=== PATIENT | male | born 1960 | race Caucasian/White ===

== ENCOUNTER 2018-11-24 14:07 | Observation (INO) ==
[2018-11-24 11:16] LABS: Basophils # 0.1 K/mcL (0.0-0.2); Basophils % 0.9 %; Eosinophils # 0.2 K/mcL (0.0-0.6); Eosinophils % 1.9 %; Hematocrit 41.2 % (37.5-50.1); Hemoglobin 13.7 g/dL (12.9-16.9); Immature Granulocytes % 0.3 % (0-4); Lymphocytes # 1.2 K/mcL (0.6-4.6); Lymphocytes % 13.5 %; Mean Corpuscular HGB Conc 33.3 g/dL (31.6-35.5); Mean Corpuscular Hemoglobin 31.4 pg (28.0-33.3); Mean Corpuscular Volume 94.3 fL (83.0-100.0); Mean Platelet Volume 11.5 fL (9.4-12.4); Monocytes # 0.7 K/mcL (0.0-1.3); Monocytes % 7.5 %; Neutrophils # 6.9 K/mcL (1.6-8.9); Platelet Count 163 K/mcL (140-400); Red Blood Count 4.37 M/mcL (4.19-5.50); Segmented Neutrophils % 75.9 %; White Blood Count 9.1 K/mcL (4.3-11.1)
[2018-11-24 11:24] LABS: INR 1.9; Prothrombin Time 21.1 Seconds (9.4-12.1)
[2018-11-24 11:35] LABS: BUN/Creatinine Ratio 16 (6-26); Blood Urea Nitrogen 16 mg/dL (6-20); Calcium 9.1 mg/dL (8.6-10.3); Carbon Dioxide 26 mEq/L (23-29); Chloride 106 mEq/L (98-107); Glucose 146 mg/dL (70-105); Osmolality,Calculated 288 (280-300); Potassium 4.3 mEq/L (3.5-5.1); Sodium 137 mEq/L (136-145); eGFR For African Americans > 60 (> 60); eGFR For Non-African Americans > 60 (> 60)
--- NOTE | 2018-11-24 11:45 | History & Physical Report ---
Date of Encounter: 11/24/18 Time of Encounter: 11:42 24 Hour HP Update - Instructions Instructions: If the History and Physical is less than 30 days old and was completed prior to A.M. admission and or procedure and has NOT been updated on calendar day of procedure please complete this update prior to performing procedure. - Update Patient reports changes in Medical Condition: No Changes in examination, assessment, or condition: No Changes in Medication: No - Attending Attestation Please refer to eCW encounter dated 10/30/[address] Ted Trejo as H&P. Mr. Haynes is a 58-year-old with known hx of A-Flutter RVR. Wore event monitor that showed episode of A-Fib RVR on 10/23/18, PAF. He reports dyspnea, diaphoresis and palpitations at times when he thinks he is out of rhythm. Planned admission for Rythmol initiation, 150mg [id number]. On Lopressor 100mg BID. Anticoagulated on Coumadin, followed by [facility]. INR over the past month therapeutic 2-3 range, but had a subtherapeutic INR on 10/19 at 1.6. Will obtain baseline labs--CBC, BMP, INR. Baseline ECG reviewed 11/24/18 1037 SR, rate 76, QRS 92ms. Will need daily ECGs to monitor QRS. Will need monitored for minimum of 5 doses. Will discuss and review with Dr. Ted Trejo. Prior CV testing: Nuclear stress test 10/14/18: Perfusion imaging was negative for ischemia or infarct. Pharmacologic stress ECG is negative for ischemia at level of heart rate achieved. Gated EF = 64%. Event monitor 10/15/18: Transmission on 10/23/18 at 6:53 and 8:48 of atrial fib with rapid ventricular response. No duration of Afib reported.
[2018-11-24] MEDS: *HR* Metformin 500 MG TABLET PO SCH (16:41)
[2018-11-24] MEDS ORDERED: *HR* Warfarin 7.5 MG TABLET PO ONE (18:00)
[2018-11-24] MEDS ORDERED: Warfarin perPT PO SCH (18:00)
[2018-11-24] MEDS ORDERED: *HR* Metoprolol 5 MG/5 ML VIAL IVP SCH (18:51)
[2018-11-24] MEDS: Metoprolol 100 MG TABLET PO SCH (20:32)
[2018-11-25 05:04] LABS: INR 1.9
[2018-11-25] MEDS: Metoprolol 100 MG TABLET PO SCH (08:29)
[2018-11-25] MEDS: *HR* Metformin 500 MG TABLET PO SCH ×2 (08:29→17:47)
[2018-11-25] MEDS ORDERED: Diltiazem CD (24hr) 120 MG CAPSULE PO SCH (09:00)
--- NOTE | 2018-11-25 10:00 | Electrophysiology ProgressNote ---
Date of Encounter: 11/25/18 Time of Encounter: 10:00 Assessment and Plan (1) PAF (paroxysmal atrial fibrillation) Current Visit: Yes Status: Acute Known hx of A-Flutter RVR. Wore event monitor that showed episode of A-Fib RVR on 10/23/18, PAF. He reports dyspnea, diaphoresis and palpitations at times when he thinks he is out of rhythm. Planned admission for Rythmol initiation, 150mg [id number]. On Lopressor 100mg BID and Cardizem CD 120mg daily. Anticoagulated on Coumadin, followed by [facility]. INR subtherapeutic 1.9. Baseline CBC and BMP stable. Baseline ECG reviewed 11/24/18 1037 SR, rate 76, QRS 92ms. ECG s/p 3 doses 11/25 SR rate 63, QRS 96ms. Has since went back into A-Fib RVR. Will need daily ECGs to monitor QRS. Will need monitored for minimum of 5 doses. If remains in A-Fib RVR will need ANDREA/DCCV tomorrow. R/B/A discussed. Pt agreea ble. Will discuss and review with Dr. Ted Trejo. Prior CV testing: Nuclear stress test 10/14/18: Perfusion imaging was negative for ischemia or infarct. Pharmacologic stress ECG is negative for ischemia at level of heart rate achieved. Gated EF = 64%. Event monitor 10/15/18: Transmission on 10/23/18 at 6:53 and 8:48 of atrial fib with rapid ventricular response. No duration of Afib reported. Discussion w patient/family: The assessment and plan as outlined above was discussed with the patient and/or family members who expressed understanding and agreement. All questions were answered. Thank you for involving us in the care of your patient. Please call with any questions. I will discuss all the above with Dr. Ted Trejo and make changes as necessary. Subjective Principal diagnosis: PAF Interval history: Reports he can tell he is out of rhythm this AM. Objective Vital Signs, Last 4 Hours Temp Pulse Resp BP Pulse Ox 11/25/18 06:41 97.7 F 82 14 111/79 94 Vital Signs Temp Pulse Resp BP Pulse Ox 11/25/18 06:41 97.7 F 82 14 111/79 94 11/25/18 04:22 97.5 F L 75 20 116/75 94 11/25/18 00:20 76 11/24/18 23:28 98.0 F 63 18 117/72 96 11/24/18 20:49 97.9 F 63 16 121/75 95 11/24/18 20:15 81 122/86 11/24/18 16:27 70 18 107/76 96 11/24/18 10:42 98.5 F 75 18 106/75 94 Intake and Output 11/24/18 11/25/18 11/25/18 23:59 07:59 15:59 Intake Total 820 / 1060 0 / 360 360 / 360 Output Total 0 / 0 Balance 820 / 1060 0 / 360 360 / 360 Intake: Oral 820 / 1060 0 / 360 360 / 360 Output: Urine 0 / 0 Other: Meal Dinner Breakfast Percent of Meal Consumed 100% 100% Weight 123 kg Blood Glucose* 166 148 Patient Weight 11/25/18 23:59 Weight 123 kg General: Conversant, No Apparent Distress HEENT: Atraumatic, Normocephaly, Mucus Membranes Moist Neck: No JVD, Normal carotid pulses Cardiac: Other (irregularly irregular) Lungs: Normal Breath Sounds, No Wheeze, Rales, Rhonchi Neuro: Alert and responsive, No focal deficits noted Abdomen: Soft, Non-Tender Skin: No rashes noted on visualized skin Musculoskeletal: No Chest Wall Tenderness Extremities: No Clubbing, No Cyanosis, No Edema, Normal Pulses Results 11/24/18 11:04 11/24/18 11:04 Lab Results 11/24/18 11/24/18 11/24/18 11:04 11:04 11:04 WBC 9.1 Hgb 13.7 Hct 41.2 Plt Count 163 INR 1.9 Sodium 137 Potassium 4.3 Chloride 106 Carbon Dioxide 26 BUN 16 Creatinine 1.01 Glucose 146 H Calcium 9.1 11/25/18 04:34 WBC Hgb Hct Plt Count INR 1.9 Sodium Potassium Chloride Carbon Dioxide BUN Creatinine Glucose Calcium Short CBC 11/24/18 Range/Units 11:04 WBC 9.1 (4.3-11.1) K/mcL Hgb 13.7 (12.9-16.9) g/dL Hct 41.2 (37.5-50.1) % Plt Count 163 (140-400) K/mcL Neutrophils # 6.9 (1.6-8.9) K/mcL BMP 09/03/19 Range/Units 11:04 Sodium 137 (136-145) mEq/L Potassium 4.3 (3.5-5.1) mEq/L Chloride 106 (98-107) mEq/L Carbon Dioxide 26 (23-29) mEq/L BUN 16 (6-20) mg/dL Creatinine 1.01 (0.70-1.30) mg/dL Glucose 146 H (70-105) mg/dL Calcium 9.1 (8.6-10.3) mg/dL Active Medications Atorvastatin Calcium (Lipitor) 40 mg PO HS [facility] Stop: 05/26/19 21:01 Last Admin: 11/24/18 20:32 Dose: 40 mg Documented by: Diltiazem HCl (Cardizem Cd) 120 mg PO DAILY [facility] Stop: 05/27/19 09:01 Last Admin: 11/25/18 08:29 Dose: 120 mg Documented by: Lisinopril (Zestril) 10 mg PO DAILY [facility]; Protocol Stop: 05/27/19 09:01 Last Admin: 11/25/18 08:29 Dose: 10 mg Documented by: Metformin HCl (Glucophage) 500 mg PO BIDWM [facility]; Protocol Stop: 05/26/19 17:01 Last Admin: 11/25/18 08:29 Dose: 500 mg Documented by: Metoprolol Tartrate (Lopressor) 100 mg PO BID [facility] Stop: 05/26/19 21:01 Last Admin: 11/25/18 08:29 Dose: 100 mg Documented by: Propafenone HCl (Rhythmol) 150 mg PO Q8HR [facility] Stop: 05/26/19 10:31 Last Admin: 11/25/18 08:29 Dose: 150 mg Documented by: Warfarin Sodium (Coumadin Perpt) 1 each PO DAILY@1800 [facility]; Protocol Stop: 05/26/19 18:01 Last Admin: 11/24/18 19:24 Dose: Not Given Documented by: - Imaging and Cardiology Stress Test: report reviewed Echo: report reviewed - EKG Interpretation EKG results cardiology: personally reviewed Consult Discharge Plan - Plan Referrals: NONE,PCP [Primary Care Provider] -
--- NOTE | 2018-11-25 10:58 | Electrocardiograph Report ---
[place] [id number] Test Date: 2018-11-24 Pat Name: Danny Puente Department: 111 Room: 2NE28 Gender: M [employer] Operator: : 1960 Requested By: Emiliano Basurto Order Number: [id number] Reading MD: Brain Corrigan Measurements Intervals [place] Rate: 76 P: 46 TN: 131 QRS: 64 QRSD: 92 T: 52 QT: 384 QTc: 414 Interpretive Statements SINUS RHYTHM POSSIBLE RIGHT VENTRICULAR CONDUCTION DELAY [RSR (QR) IN V1/V2] NONSPECIFIC T-WAVE ABNORMALITY Electronically Signed On 11-25-2018 10:56:45 EDT by Brain Corrigan
--- NOTE | 2018-11-25 13:02 | Discharge Summary ---
Date of Encounter: 11/25/18 Time of Encounter: 13:00 - Discharge Diagnosis (1) PAF (paroxysmal atrial fibrillation) Priority: Primary Status: Acute - Hospital Course Hospital course: Mr. Puente is a 58 year old male with known hx of A-Flutter RVR. Wore event monitor that showed episode of A-Fib RVR on 10/23/18, PAF. He reports dyspnea, diaphoresis and palpitations at times when he thinks he is out of rhythm. Pr esented 11/24 for admission for Rythmol initiation, 150mg [id number]. On Lopressor 100mg BID and Cardizem CD 120mg daily. Anticoagulated on Coumadin, followed by [facility]. INR subtherapeutic 1.9. Baseline CBC and BMP stable. Baseline ECG reviewed 11/24/18 1037 SR, rate 76, QRS 92ms. ECG s/p 3 doses 11/25 SR rate 63, QRS 96ms. PAF this AM, but now back in SR. Discussed and reviewed with Dr. Ted Trejo. Has received 4 doses of Rythmol, 5th this afternoon. If still maintaining SR and if QRS <120ms after 5th rhythmol dose, okay to d/c home this afternoon. Will coordinate outpt follow-up. Prior CV testing: Nuclear stress test 10/14/18: Perfusion imaging was negative for ischemia or infarct. Pharmacologic stress ECG is negative for ischemia at level of heart rate achieved. Gated EF = 64%. Event monitor 10/15/18: Transmission on 10/23/18 at 6:53 and 8:48 of atrial fib with rapid ventricular response. No duration of Afib reported. - Time Spent with Patient Total time spent providing and/or coordinating discharge services: Less than 30 minutes - Discharge Medications Prescriptions: New Propafenone [Rhythmol] 150 mg PO Q8HR #90 tablet Continued metFORMIN [Glucophage] 500 mg PO BIDWM Diltiazem CD (24hr) [Cardizem CD] 120 mg PO DAILY Lisinopril [Zestril] 10 mg PO DAILY Atorvastatin [Lipitor] 40 mg PO HS Metoprolol [Lopressor] 100 mg PO BID Warfarin [Coumadin] 10 mg PO WEFR Warfarin [Coumadin] 7.5 [facility] Home Medications: Atorvastatin [Lipitor] 40 mg PO HS 11/24/18 [History] Diltiazem CD (24hr) [Cardizem CD] 120 mg PO DAILY 11/24/18 [History] Lisinopril [Zestril] 10 mg PO DAILY 11/24/18 [History] Metoprolol [Lopressor] 100 mg PO BID 11/24/18 [History] Warfarin [Coumadin] 7.5 mg PO SUMOTUTHSA 11/24/18 [History] Warfarin [Coumadin] 10 mg PO WEFR 11/24/18 [History] metFORMIN [Glucophage] 500 mg PO BIDWM 11/24/18 [History] Propafenone [Rhythmol] 150 mg PO Q8HR #90 tablet 11/25/18 [Rx] Allergies/Adverse Reactions: Allergy/AdvReac Type Severity Reaction Status Date / Time shellfish derived Allergy Anaphylaxis Verified 11/24/18 16:31 Date of admission: 11/24/18 10:18 Primary care physician: PCP NONE Consults: 11/24/18 14:31 Consult to Video Producer [CONS] Routine Reason for SW Consult: Patient request information about medical POA paperwork Discharging clinician: Emiliano Basurto Anticipated date of discharge: 11/25/18 Physical Examination Vital Signs, Last 4 Hours Temp Pulse Resp BP Pulse Ox 11/25/18 11:51 97.7 F 64 14 107/67 94 Vital Signs Temp Pulse Resp BP Pulse Ox 11/25/18 11:51 97.7 F 64 14 107/67 94 11/25/18 06:41 97.7 F 82 14 111/79 94 11/25/18 04:22 97.5 F L 75 20 116/75 94 11/25/18 00:20 76 11/24/18 23:28 98.0 F 63 18 117/72 96 11/24/18 20:49 97.9 F 63 16 121/75 95 11/24/18 20:15 81 122/86 11/24/18 16:27 70 18 107/76 96 Intake and Output 11/24/18 11/25/18 11/25/18 23:59 07:59 15:59 Intake Total 820 / 1060 0 / 360 360 / 360 Output Total 0 / 0 Balance 820 / 1060 0 / 360 360 / 360 Intake: Oral 820 / 1060 0 / 360 360 / 360 Output: Urine 0 / 0 Other: Meal Dinner Breakfast Percent of Meal Consumed 100% 100% Stool Size Moderate Stool Consistency soft Stool Characteristics Normal for Patient Stool Color Brown # Voids 4 # Bowel Movements 1 Weight 123 kg Blood Glucose* 166 148 195 Patient Weight 11/25/18 23:59 Weight 123 kg General: Conversant, No Apparent Distress HEENT: Atraumatic, Normocephaly, Mucus Membranes Moist Neck: No JVD, Normal carotid pulses Cardiac: Reg Rate and Rhythm, Normal S1 and S2, No Murmur Lungs: Normal Breath Sounds, No Wheeze, Rales, Rhonchi Neuro: Alert and responsive, No focal deficits noted Abdomen: Soft, Non-Tender Skin: No rashes noted on visualized skin Musculoskeletal: No Chest Wall Tenderness Extremities: No Clubbing, No Cyanosis, No Edema, Normal Pulses - Patient Status Disposition: Home, Self-Care Condition: Fair Functional capacity at discharge: independent ambulation Overall status at discharge: patient is progressing back to baseline - Discharge Instructions Follow Up With: NONE,PCP [Primary Care Provider] - - Diet and Activity Activity: increase activity as tolerated Diet: diabetic diet, low fat, low cholesterol
[2018-11-25 15:39] VITALS: BP 100/64
[2018-11-25] MEDS ORDERED: *HR* Warfarin 10 MG TABLET PO ONE (18:00)
--- NOTE | 2018-11-26 14:54 | Electrocardiograph Report ---
[place] [id number] Test Date: 2018-11-25 Pat Name: Danny Puente Department: 111 Room: 2NE28 Gender: M Data Entry: : 1960 Requested By: Emiliano Basurto Order Number: [id number] Reading MD: Ted Trejo Measurements Intervals [place] Rate: 63 P: 30 [place]: 137 QRS: 61 QRSD: 96 T: 42 QT: 410 QTc: 417 Interpretive Statements SINUS RHYTHM POSSIBLE RIGHT VENTRICULAR CONDUCTION DELAY [RSR (QR) IN V1/V2] Electronically Signed On 11-26-2018 14:53:21 EDT by Ted Trejo
--- NOTE | 2018-11-26 16:10 | Electrocardiograph Report ---
[place] [address] Test Date: 2018-11-25 Pat Name: Danny Puente Department: 111 Room: 2NE28 Gender: M Store Operations Specialist: [facility] : 1960 Requested By: Emiliano Basurto Order Number: [id number] Reading MD: Ted Trejo Measurements Intervals [place] Rate: 57 P: 19 [place]: 142 QRS: 62 QRSD: 92 T: 49 QT: 399 QTc: 392 Interpretive Statements SINUS BRADYCARDIA POSSIBLE RIGHT VENTRICULAR CONDUCTION DELAY MINIMAL ST DEPRESSION Electronically Signed On 11-26-2018 16:08:45 EDT by Ted Trejo
== END 2018-11-25 18:21 | disposition home or self-care (01) ==
LOC: 2NENU
PROVIDERS: ADMIT Internal Medicine Interventional Cardiology; ATTEND Internal Medicine Interventional Cardiology

== ENCOUNTER 2019-05-19 10:37 | Inpatient (IN) ==
[2019-05-19] MEDS ORDERED: CeFAZolin Syr 2,000MG/20 ML 2,000 MG/20 ML SYRINGE IVPB ONE (11:36)
[2019-05-19] MEDS ORDERED: Ringers Solution, Lactated 1,000 ML IVC SCH ×2 (11:45→15:51)
[2019-05-19 12:18] LABS: INR 1.1; Prothrombin Time 12.3 Seconds (9.4-12.1)
[2019-05-19] MEDS ORDERED: *HR* OxyCODONE Immed Rel 5 MG TABLET PO PRN ×2 (12:32→15:51)
[2019-05-19] MEDS ORDERED: Ondansetron 4 MG/2 ML VIAL IVP ONE (12:32)
[2019-05-19] MEDS ORDERED: *HR* Promethazine 25 MG/ML VIAL IVP PRN (12:32)
[2019-05-19] MEDS ORDERED: *HR* FentaNYL (PF) 100 MCG/2 ML VIAL ONE (12:38)
[2019-05-19] MEDS ORDERED: *HR* Propofol 200 MG/20 ML VIAL IVP ONE ×2 (12:39→13:52)
[2019-05-19] MEDS ORDERED: *HR* Midazolam HCl 2 MG/2 ML VIAL ONE (12:39)
[2019-05-19] MEDS ORDERED: Lidocaine -MPF 2% 2 ML VIAL ONE (12:40)
[2019-05-19] MEDS ORDERED: Dexamethasone 4 MG/ML VIAL ONE (12:41)
[2019-05-19] MEDS ORDERED: *HR* Succinylcholine 200 MG/10 ML VIAL IVP ONE (12:41)
[2019-05-19] MEDS ORDERED: Lidocaine -MPF 4% 5 ML AMPUL ONE (12:43)
[2019-05-19] MEDS ORDERED: Ropivacaine/PF 0.5% 30 ML VIAL ONE (12:52)
[2019-05-19] MEDS ORDERED: ROPIVACAINE/PF/NS 0.25% 1 EACH SYRINGE INTRAART ONE (12:52)
[2019-05-19] MEDS ORDERED: Ethanol\\Acetic Acid\\Na Ace\\Ben 1,000 ML IRRIG.SOLN IR ONE (13:09)
[2019-05-19] MEDS ORDERED: *HR* PHENYLEPHRINE 1,000 MCG/10 ML SYRINGE IVP ONE (14:03)
[2019-05-19] MEDS: *HR* HYDROmorphone PF 0.5 MG/0.5 ML SYRINGE IVP PRN ×2 (14:51→15:17)
[2019-05-19 15:21] LABS: Hematocrit 44.8 % (37.5-50.1); Hemoglobin 14.7 g/dL (12.9-16.9)
[2019-05-19] MEDS ORDERED: Sennosides 8.6 MG TABLET PO PRN (15:51)
[2019-05-19] MEDS ORDERED: Naloxone 0.4 MG/ML INJ IVP PRN (15:51)
[2019-05-19] MEDS ORDERED: MOM Conc 10 ML UD.LIQ PO PRN (15:51)
[2019-05-19] MEDS ORDERED: *HR* OxyCODONE/APAP 5/325 TABLET PO PRN (15:51)
[2019-05-19] MEDS ORDERED: Ondansetron 4 MG/2 ML VIAL IVP PRN (15:51)
[2019-05-19] MEDS ORDERED: *HR* Enoxaparin 30 MG/0.3 ML SYRINGE SQ SCH (18:00)
[2019-05-19] MEDS: *HR* Metformin 500 MG TABLET PO SCH (18:20)
[2019-05-19] MEDS: *HR* Warfarin 5 MG TABLET PO SCH ×2 (18:20→18:39)
[2019-05-19] MEDS: ceFAZolin 3,000 MG in 0.9 % Sodium Chloride 100 ML IVPB SCH (18:21)
[2019-05-19] MEDS: *HR* Enoxaparin 30 MG/0.3 ML SYRINGE SQ SCH ×2 (18:39→18:57)
[2019-05-19 19:24] LABS: INR 1.1; Prothrombin Time 12.5 Seconds (9.4-12.1)
[2019-05-19] MEDS: Metoprolol 100 MG TABLET PO SCH (21:37)
[2019-05-20] MEDS: ceFAZolin 3,000 MG in 0.9 % Sodium Chloride 100 ML IVPB SCH (00:10)
[2019-05-20 02:03] LABS: Hematocrit 41.5 % (37.5-50.1); Hemoglobin 13.6 g/dL (12.9-16.9)
[2019-05-20 02:13] LABS: INR 1.2; Prothrombin Time 13.1 Seconds (9.4-12.1)
[2019-05-20 02:22] LABS: BUN/Creatinine Ratio 18 (6-26); Blood Urea Nitrogen 21 mg/dL (6-20); Calcium 8.6 mg/dL (8.6-10.3); Carbon Dioxide 25 mEq/L (23-29); Chloride 99 mEq/L (98-107); Glucose 239 mg/dL (70-105); Osmolality,Calculated 285 (280-300); Sodium 132 mEq/L (136-145); eGFR For African Americans > 60 (> 60); eGFR For Non-African Americans > 60 (> 60)
[2019-05-20] MEDS: *HR* Enoxaparin 30 MG/0.3 ML SYRINGE SQ SCH (06:04)
[2019-05-20 07:04] VITALS: BP 114/78
[2019-05-20] MEDS: *HR* Metformin 500 MG TABLET PO SCH (08:31)
[2019-05-20] MEDS: Metoprolol 100 MG TABLET PO SCH (08:31)
[2019-05-20] MEDS ORDERED: DilTIAZem CD (24hr) 120 MG CAP.ER.24H PO SCH (09:00)
[2019-05-20] MEDS ORDERED: Insulin LISPRO 300 UNITS/3 ML VIAL SQ SCH (12:00)
== END 2019-05-20 15:05 | disposition home or self-care (01) | DRG 483 ==
LOC: SAMDAY 10:37 → 3NENU 10:38
PROVIDERS: ADMIT Orthopaedic Surgery; ATTEND Orthopaedic Surgery